=== PATIENT | female | born 1940 | race Caucasian/White ===

== ENCOUNTER 2017-07-29 17:16 | Observation (INO) ==
[2017-07-29] MEDS ORDERED: 0.9 % Sodium Chloride 500 ML IVC ONE (17:42)
[2017-07-29 17:59] LABS: Basophils % 0.5 %; Eosinophils # 0.1 K/mcL (0.0-0.6); Eosinophils % 1.8 %; Hematocrit 41.3 % (35.3-44.9); Hemoglobin 13.5 g/dL (11.5-15.4); Immature Granulocytes % 0.3 % (0-4); Lymphocytes % 25.9 %; Mean Corpuscular HGB Conc 32.7 g/dL (31.6-35.5); Mean Corpuscular Hemoglobin 29.6 pg (28.0-33.3); Mean Corpuscular Volume 90.6 fL (83.0-100.0); Mean Platelet Volume 9.1 fL (9.4-12.4); Monocytes # 0.5 K/mcL (0.0-1.3); Monocytes % 6.6 %; Platelet Count 239 K/mcL (140-400); Red Blood Count 4.56 M/mcL (3.82-4.97); Red Cell Distribution Width 13.4 % (11.5-14.5); Segmented Neutrophils % 64.9 %
[2017-07-29 18:04] LABS: INR 1.1; Prothrombin Time 11.5 Seconds (9.4-12.1)
[2017-07-29 18:06] LABS: Activated Partial Thrombo Time 31.5 Seconds (26.0-36.0)
[2017-07-29 18:08] LABS: Potassium 3.4 mEq/L (3.5-5.1)
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
[2017-07-29 18:40] LABS: Bilirubin,Urine Negative (Negative); Blood,Urine Negative (Negative); Clarity,Urine Clear (Clear); Color,Urine Yellow (Yellow); Glucose,Urine (UA) Normal (Normal); Ketones,Urine Negative (Negative); Leukocyte Esterase,Urine Moderate (Negative); Nitrite,Urine Negative (Negative); Protein,Urine Negative (Neg-Trace); Urobilinogen,Urine Normal (Normal)
[2017-07-29 18:41] LABS: Bacteria,Urine None Seen per hpf (None-Few); Hyaline Casts,Urine None Seen per lpf (None-Few); RBC,Urine 0-3 per hpf (0-3); Squamous Epithelial Cell,Urine Many per lpf (None-Few); WBC,Urine 15-30 per hpf (0-3)
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
[2017-07-29] MEDS ORDERED: Nitroglycerin 0.4 MG TAB.SUBL SL ONE (19:34)
[2017-07-29] MEDS ORDERED: Aspirin 81 MG TAB.CHEW PO ONE (20:01)
[2017-07-30] MEDS: Nitroglycerin 0.4 MG TAB.SUBL SL PRN ×2 (02:50→21:55)
[2017-07-30] MEDS ORDERED: Nitroglycerin 0.4 MG TAB.SUBL SL ONE (02:52)
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
[2017-07-30] MEDS ORDERED: Nitroglycerin 0.4 MG TAB.SUBL SL PRN (07:40)
[2017-07-30] MEDS ORDERED: Acetaminophen 325 MG TABLET PO PRN (07:43)
[2017-07-30] MEDS ORDERED: Naloxone 0.4 MG/ML INJ IVP PRN (07:43)
[2017-07-30] MEDS: hydroCHLOROthiazide 25 MG TABLET PO SCH (07:59)
[2017-07-30] MEDS: Pyridoxine (B-6) 50 MG TABLET PO SCH (08:00)
[2017-07-30] MEDS: Thiamine (B-1) 100 MG TABLET PO SCH (08:00)
[2017-07-30] MEDS: Isosorbide MONOnitrate (24 HR) 30 MG TAB.ER.24H PO SCH (08:00)
[2017-07-30] MEDS: Aspirin 81 MG TAB.CHEW PO SCH (08:00)
[2017-07-30] MEDS ORDERED: Metoprolol XL (24 HR) Succ 25 MG TAB.ER.24H PO SCH (09:00)
[2017-07-30] MEDS: Insulin DETEMIR 100 UNIT/ML X5UNITS SQ SCH ×2 (09:23→21:48)
[2017-07-30] MEDS ORDERED: hydrOXYzine pamoate 25 MG CAPSULE PO PRN (10:10)
[2017-07-30] MEDS ORDERED: Dextrose Gel 15 GM PO PRN ×2 (11:45)
[2017-07-30] MEDS ORDERED: D5% in Water 1,000 ML IVC PRN (11:45)
[2017-07-30] MEDS ORDERED: *HR* Dextrose 50 % in Water (Syg) 50 ML SYRINGE IVP PRN (11:45)
[2017-07-30] MEDS: Insulin LISPRO 300 UNITS/3 ML VIAL SQ SCH ×4 (11:58→21:48)
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
--- NOTE | 2017-07-30 16:39 | Electrocardiograph Report ---
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
[2017-07-30] MEDS: *HR* Heparin 5,000 UNIT/ML VIAL SQ SCH (16:51)
[2017-07-31] MEDS: *HR* Heparin 5,000 UNIT/ML VIAL SQ SCH ×2 (05:24→17:41)
[2017-07-31 05:41] LABS: BUN/Creatinine Ratio 23 (6-26); Blood Urea Nitrogen 21 mg/dL (8-23); Carbon Dioxide 31 mEq/L (23-29); Chloride 106 mEq/L (98-107); Glucose 82 mg/dL (70-105); Magnesium 1.9 mg/dL (1.6-2.6); Osmolality,Calculated 294 (280-300); Potassium 3.5 mEq/L (3.5-5.1); Sodium 141 mEq/L (136-145); eGFR For African Americans > 60 (> 60); eGFR For Non-African Americans 59 (> 60)
[2017-07-31 05:49] LABS: Thyroid Stimulating Hormone 5.699 mcIU/mL (0.340-5.600)
[2017-07-31 06:00] LABS: Basophils % 0.6 %; Eosinophils # 0.3 K/mcL (0.0-0.6); Eosinophils % 3.9 %; Hematocrit 37.2 % (35.3-44.9); Lymphocytes % 43.8 %; Mean Corpuscular Hemoglobin 29.1 pg (28.0-33.3); Mean Platelet Volume 9.2 fL (9.4-12.4); Monocytes # 0.4 K/mcL (0.0-1.3); Monocytes % 6.5 %; Platelet Count 220 K/mcL (140-400); Red Blood Count 4.09 M/mcL (3.82-4.97); Red Cell Distribution Width 13.6 % (11.5-14.5); Segmented Neutrophils % 45.2 %
[2017-07-31 06:23] LABS: Hemoglobin 11.9 g/dL (11.5-15.4)
[2017-07-31] MEDS: Insulin LISPRO 300 UNITS/3 ML VIAL SQ SCH ×4 (07:52→21:21)
[2017-07-31] MEDS: hydroCHLOROthiazide 25 MG TABLET PO SCH (08:45)
[2017-07-31] MEDS: Pyridoxine (B-6) 50 MG TABLET PO SCH (08:46)
[2017-07-31] MEDS: Isosorbide MONOnitrate (24 HR) 30 MG TAB.ER.24H PO SCH (08:46)
[2017-07-31] MEDS: Thiamine (B-1) 100 MG TABLET PO SCH (08:46)
[2017-07-31] MEDS: Aspirin 81 MG TAB.CHEW PO SCH (08:46)
[2017-07-31] MEDS: Insulin DETEMIR 100 UNIT/ML X5UNITS SQ SCH ×2 (08:47→21:20)
--- NOTE | 2017-07-31 11:25 | Event Note ---
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 Discussed with Dr. Vijay Curry as well. Limited echo EF preserved. Discussed with pt regarding PPM insertion--R/B/ A. Pt agrees. PPM today.
[2017-07-31] MEDS ORDERED: CeFAZolin Syr 2,000MG/20 ML 2,000 MG/20 ML SYRINGE IVPB ONE (11:26)
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
[2017-07-31] MEDS ORDERED: 0.9 % Sodium Chloride 500 ML ONE (14:54)
[2017-07-31] MEDS ORDERED: 0.9 % Sodium Chloride 1,000 ML ONE (14:56)
[2017-07-31] MEDS ORDERED: *HR* FentaNYL (PF) 100 MCG/2 ML VIAL ONE (15:19)
[2017-07-31] MEDS ORDERED: *HR* Midazolam HCl 2 MG/2 ML VIAL ONE ×2 (15:19→15:36)
--- NOTE | 2017-07-31 16:10 | Pre-Sedation Evaluation ---
Pre-sedation evaluation - Pre-sedation checklist Date of procedure: 07/31/17 Procedure: Pacemaker placement Recent Vitals: Last Vital Signs Temp 98.1 F 07/31/17 14:32 Pulse 69 07/31/17 14:32 Resp 15 07/31/17 14:32 BP 134/93 07/31/17 14:32 Pulse Ox 93 07/31/17 14:32 H&P (including ROS) documented in medical record: Yes Previous reaction to sedatives/anesthetics: No Dietary Status: No solid food in preceding 4 hrs and no liquid in preceding 2 hrs Dentition: No loose teeth or bridges Possible difficult airway: No ASA Classification *see protocol: CLASS II-Mild systemic disease Plan of Care: Pt appropriate candidate for procedure/moderate/conscious sedation , Risks/benefits of procedure/sedation discussed w/ patient/family
[2017-08-01] MEDS: CeFAZolin Premix DUPLEX 2,000 MG/50 ML BAG IVPB SCH ×2 (01:09→09:03)
[2017-08-01] MEDS ORDERED: *HR* OxyCODONE/APAP 5/325 TABLET PO PRN (01:14)
[2017-08-01 05:43] LABS: Basophils % 0.6 %; Eosinophils # 0.3 K/mcL (0.0-0.6); Eosinophils % 4.4 %; Hematocrit 35.9 % (35.3-44.9); Hemoglobin 11.4 g/dL (11.5-15.4); Immature Granulocytes % 0.2 % (0-4); Lymphocytes # 2.4 K/mcL (0.6-4.6); Lymphocytes % 36.2 %; Mean Corpuscular HGB Conc 31.8 g/dL (31.6-35.5); Mean Corpuscular Hemoglobin 28.8 pg (28.0-33.3); Mean Corpuscular Volume 90.7 fL (83.0-100.0); Mean Platelet Volume 9.3 fL (9.4-12.4); Monocytes # 0.5 K/mcL (0.0-1.3); Neutrophils # 3.4 K/mcL (1.6-8.9); Platelet Count 200 K/mcL (140-400); Red Blood Count 3.96 M/mcL (3.82-4.97); Red Cell Distribution Width 13.3 % (11.5-14.5); Segmented Neutrophils % 51.6 %
[2017-08-01 05:49] LABS: Hemoglobin A1C 6.2 %
[2017-08-01 06:00] LABS: BUN/Creatinine Ratio 18 (6-26); Blood Urea Nitrogen 17 mg/dL (8-23); Calcium 8.8 mg/dL (8.6-10.3); Carbon Dioxide 28 mEq/L (23-29); Chloride 106 mEq/L (98-107); Glucose 97 mg/dL (70-105); Osmolality,Calculated 291 (280-300); Potassium 3.5 mEq/L (3.5-5.1); Sodium 140 mEq/L (136-145); eGFR For African Americans > 60 (> 60); eGFR For Non-African Americans 56 (> 60)
[2017-08-01] MEDS: *HR* Heparin 5,000 UNIT/ML VIAL SQ SCH (06:25)
[2017-08-01] MEDS: Insulin LISPRO 300 UNITS/3 ML VIAL SQ SCH (07:52)
[2017-08-01] MEDS: hydroCHLOROthiazide 25 MG TABLET PO SCH (09:02)
[2017-08-01] MEDS: Pyridoxine (B-6) 50 MG TABLET PO SCH (09:02)
[2017-08-01] MEDS: Aspirin 81 MG TAB.CHEW PO SCH (09:02)
[2017-08-01] MEDS: Thiamine (B-1) 100 MG TABLET PO SCH (09:03)
[2017-08-01] MEDS: Isosorbide MONOnitrate (24 HR) 30 MG TAB.ER.24H PO SCH (09:03)
[2017-08-01] MEDS: Insulin DETEMIR 100 UNIT/ML X5UNITS SQ SCH (09:05)
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
[2017-08-01 10:58] VITALS: BP 143/82
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
[2017-08-02] MEDS ORDERED: Metoprolol XL (24 HR) Succ 25 MG TAB.ER.24H PO SCH (09:00)
== END 2017-08-01 16:05 | disposition home or self-care (01) ==
LOC: 3BNU 17:16 → EMEROO 17:16 → 3BNU 22:20
PROVIDERS: ADMIT Student in an Organized Health Care Education/Training Program; ATTEND Registered Nurse

== ENCOUNTER 2020-05-07 17:28 | Observation (INO) ==
[2020-05-07 19:28] LABS: Bacteria,Urine Few per hpf (None-Few); Bilirubin,Urine Negative (Negative); Blood,Urine Negative (Negative); Clarity,Urine Clear (Clear); Color,Urine Light-Yellow (Yellow); Glucose,Urine (UA) Normal (Normal); Ketones,Urine Negative (Negative); Leukocyte Esterase,Urine Large (Negative); Mucus,Urine Few per lpf (None-Few); Nitrite,Urine Negative (Negative); Protein,Urine Negative (Neg-Trace); RBC,Urine 0-3 per hpf (0-3); Specific Gravity,Urine 1.007 (1.010-1.025); Squamous Epithelial Cell,Urine Few per hpf (None-Few); Urobilinogen,Urine Normal (Normal); WBC,Urine 30-50 per hpf (0-3)
[2020-05-07 19:31] LABS: Basophils # 0.1 K/mcL (0.0-0.2); Basophils % 0.5 %; Eosinophils # 0.2 K/mcL (0.0-0.6); Eosinophils % 1.5 %; Hematocrit 41.8 % (35.3-44.9); Immature Granulocytes % 0.4 % (0-4); Lymphocytes # 1.4 K/mcL (0.6-4.6); Lymphocytes % 12.9 %; Mean Corpuscular HGB Conc 31.1 g/dL (31.6-35.5); Mean Corpuscular Hemoglobin 28.5 pg (28.0-33.3); Mean Corpuscular Volume 91.7 fL (83.0-100.0); Mean Platelet Volume 9.1 fL (9.4-12.4); Monocytes # 0.5 K/mcL (0.0-1.3); Monocytes % 4.4 %; Neutrophils # 8.5 K/mcL (1.6-8.9); Platelet Count 191 K/mcL (140-400); Red Blood Count 4.56 M/mcL (3.82-4.97); Red Cell Distribution Width 13.8 % (11.5-14.5); Segmented Neutrophils % 80.3 %; White Blood Count 10.6 K/mcL (4.3-11.1)
[2020-05-07 19:34] LABS: Prothrombin Time 11.6 Seconds (9.4-12.1)
[2020-05-07 19:37] LABS: Activated Partial Thrombo Time 38.8 Seconds (26.0-36.0)
[2020-05-07 19:50] LABS: Alanine Aminotransferase 19 Units/L (7-52); Albumin 4.4 g/dL (3.5-5.7); Albumin/Globulin Ratio 1.8 (1.1-2.2); Alkaline Phosphatase 107 Units/L (34-104); Aspartate Amino Transferase 22 Units/L (13-39); BUN/Creatinine Ratio 16 (6-26); Bilirubin,Total 0.5 mg/dL (0.3-1.0); Blood Urea Nitrogen 14 mg/dL (8-23); Calcium 9.7 mg/dL (8.6-10.3); Carbon Dioxide 28 mEq/L (23-29); Chloride 105 mEq/L (98-107); Globulin 2.5 g/dL (2.4-3.5); Glucose 48 mg/dL (70-105); Osmolality,Calculated 288 (280-300); Potassium 3.8 mEq/L (3.5-5.1); Sodium 140 mEq/L (136-145); Total Protein 6.9 g/dL (6.4-8.9); Troponin I < 0.03 ng/mL (< 0.04); eGFR For African Americans > 60 (> 60); eGFR For Non-African Americans > 60 (> 60)
[2020-05-07] MEDS ORDERED: Perflutren Lipid Microsphere 1.3 ML in 0.9 % Sodium Chloride 8.7 ML IVP PRN (23:29)
[2020-05-07] MEDS ORDERED: *HR* Dextrose 50 % in Water (Vial) 50 ML VIAL IVP PRN (23:33)
[2020-05-07] MEDS ORDERED: Dextrose Gel 15 GM/37.5 ML TUBE PO PRN ×2 (23:33)
[2020-05-08] MEDS ORDERED: Naloxone 0.4 MG/ML INJ IVP PRN (00:25)
[2020-05-08] MEDS ORDERED: Ondansetron 4 MG/2 ML VIAL IVP PRN (00:25)
[2020-05-08] MEDS ORDERED: D5% in Water 1,000 ML IVC PRN (00:29)
[2020-05-08] MEDS: Isosorbide MONOnitrate (24 HR) 30 MG TAB.ER.24H PO SCH ×2 (00:40→11:48)
[2020-05-08] MEDS: Metoprolol XL (24 HR) Succ 25 MG TAB.ER.24H PO SCH ×2 (00:40→11:49)
[2020-05-08] MEDS: 0.9 % Sodium Chloride 1,000 ML IVC SCH ×2 (03:09→19:20)
[2020-05-08] MEDS: cefTRIAXone 1,000 MG in 0.9 % Sodium Chloride Mini Bag 100 ML IVPB SCH ×2 (03:10→23:54)
[2020-05-08 05:22] LABS: INR 1.1; Prothrombin Time 12.6 Seconds (9.4-12.1)
[2020-05-08 05:36] LABS: Hematocrit 35.7 % (35.3-44.9); Mean Corpuscular HGB Conc 31.7 g/dL (31.6-35.5); Mean Corpuscular Hemoglobin 29.3 pg (28.0-33.3); Mean Corpuscular Volume 92.5 fL (83.0-100.0); Mean Platelet Volume 9.5 fL (9.4-12.4); Platelet Count 162 K/mcL (140-400); Red Blood Count 3.86 M/mcL (3.82-4.97); White Blood Count 5.8 K/mcL (4.3-11.1)
[2020-05-08 05:39] LABS: Hemoglobin 11.3 g/dL (11.5-15.4)
[2020-05-08 05:43] LABS: BUN/Creatinine Ratio 16 (6-26); Blood Urea Nitrogen 13 mg/dL (8-23); Calcium 8.9 mg/dL (8.6-10.3); Carbon Dioxide 29 mEq/L (23-29); Chloride 108 mEq/L (98-107); Chol/HDL Ratio 3.3 (0-4.9); Cholesterol 132 mg/dL (< 200); Glucose 123 mg/dL (70-105); HDL Cholesterol 40 mg/dL (40-59); Osmolality,Calculated 297 (280-300); Phosphorous 3.7 mg/dL (2.7-4.5); Potassium 3.8 mEq/L (3.5-5.1); Sodium 143 mEq/L (136-145); Triglycerides 152 mg/dL (< 150); eGFR For African Americans > 60 (> 60); eGFR For Non-African Americans > 60 (> 60)
[2020-05-08 05:44] LABS: LDL Cholesterol,Calculated 62 mg/dL (< 100)
[2020-05-08 05:52] LABS: Thyroid Stimulating Hormone 6.594 mcIU/mL (0.340-5.600)
[2020-05-08] MEDS: Insulin DETEMIR 100 UNIT/ML X5UNITS SQ SCH ×2 (07:30→20:26)
[2020-05-08] MEDS: Insulin LISPRO 300 UNITS/3 ML VIAL SQ SCH ×3 (07:30→18:11)
[2020-05-08 10:00] LABS: Estimated Average Glucose 140 mg/dl
[2020-05-08] MEDS: BuPROPion SR (12 HR) 150 MG TABLET PO SCH ×2 (11:48→20:25)
[2020-05-08] MEDS: Aspirin 81 MG TAB.CHEW PO SCH (11:48)
[2020-05-08] MEDS: Letrozole 2.5 MG TABLET PO SCH (11:49)
[2020-05-08] MEDS: Gabapentin 400 MG CAPSULE PO SCH ×3 (11:49→20:25)
[2020-05-08] MEDS: Furosemide 20 MG TABLET PO SCH (18:16)
[2020-05-08] MEDS: Acetaminophen 325 MG TABLET PO PRN ×2 (18:21→23:53)
[2020-05-09] MEDS: Insulin LISPRO 300 UNITS/3 ML VIAL SQ SCH ×3 (07:30→18:05)
[2020-05-09] MEDS ORDERED: Ergocalciferol (VIT D2) 50,000 UNIT (1.25MG) CAP PO SCH (08:15)
[2020-05-09] MEDS: Insulin DETEMIR 100 UNIT/ML X5UNITS SQ SCH ×2 (09:00→20:52)
[2020-05-09] MEDS: Letrozole 2.5 MG TABLET PO SCH (10:28)
[2020-05-09] MEDS: Gabapentin 400 MG CAPSULE PO SCH ×3 (10:28→20:51)
[2020-05-09] MEDS: Metoprolol XL (24 HR) Succ 50 MG TAB.ER.24H PO SCH (10:28)
[2020-05-09] MEDS: Isosorbide MONOnitrate (24 HR) 30 MG TAB.ER.24H PO SCH (10:28)
[2020-05-09] MEDS: Aspirin 81 MG TAB.CHEW PO SCH (10:28)
[2020-05-09] MEDS: Furosemide 20 MG TABLET PO SCH (10:28)
[2020-05-09] MEDS: BuPROPion SR (12 HR) 150 MG TABLET PO SCH ×2 (10:28→20:50)
[2020-05-09 10:36] LABS: Hematocrit 41.2 % (35.3-44.9); Hemoglobin 12.7 g/dL (11.5-15.4); Mean Corpuscular HGB Conc 30.8 g/dL (31.6-35.5); Mean Corpuscular Hemoglobin 28.8 pg (28.0-33.3); Mean Corpuscular Volume 93.4 fL (83.0-100.0); Mean Platelet Volume 9.2 fL (9.4-12.4); Platelet Count 199 K/mcL (140-400); Red Blood Count 4.41 M/mcL (3.82-4.97); White Blood Count 6.9 K/mcL (4.3-11.1)
[2020-05-09 11:10] LABS: BUN/Creatinine Ratio 20 (6-26); Blood Urea Nitrogen 21 mg/dL (8-23); Calcium 9.4 mg/dL (8.6-10.3); Carbon Dioxide 27 mEq/L (23-29); Chloride 103 mEq/L (98-107); Glucose 233 mg/dL (70-105); Osmolality,Calculated 294 (280-300); Potassium 3.9 mEq/L (3.5-5.1); Sodium 137 mEq/L (136-145); eGFR For African Americans > 60 (> 60); eGFR For Non-African Americans 51 (> 60)
[2020-05-09] MEDS ORDERED: Isovue-370 500 ML BOTTLE IVP ONE (11:38)
[2020-05-09] MEDS ORDERED: Furosemide 20 MG TABLET PO PRN (12:54)
[2020-05-09] MEDS ORDERED: 0.9 % Sodium Chloride 1,000 ML IVC SCH (19:30)
[2020-05-10 03:43] LABS: BUN/Creatinine Ratio 24 (6-26); Blood Urea Nitrogen 24 mg/dL (8-23); Calcium 9.1 mg/dL (8.6-10.3); Carbon Dioxide 28 mEq/L (23-29); Chloride 106 mEq/L (98-107); Glucose 134 mg/dL (70-105); Osmolality,Calculated 294 (280-300); Potassium 3.6 mEq/L (3.5-5.1); Sodium 139 mEq/L (136-145); eGFR For African Americans > 60 (> 60); eGFR For Non-African Americans 54 (> 60)
[2020-05-10 06:53] VITALS: BP 152/64
[2020-05-10] MEDS: Insulin LISPRO 300 UNITS/3 ML VIAL SQ SCH (08:36)
[2020-05-10] MEDS: Metoprolol XL (24 HR) Succ 50 MG TAB.ER.24H PO SCH (08:52)
[2020-05-10] MEDS: BuPROPion SR (12 HR) 150 MG TABLET PO SCH (08:52)
[2020-05-10] MEDS: Aspirin 81 MG TAB.CHEW PO SCH (08:52)
[2020-05-10] MEDS: Letrozole 2.5 MG TABLET PO SCH (08:52)
[2020-05-10] MEDS: Isosorbide MONOnitrate (24 HR) 30 MG TAB.ER.24H PO SCH (08:52)
[2020-05-10] MEDS: Gabapentin 400 MG CAPSULE PO SCH (08:52)
[2020-05-10] MEDS: Insulin DETEMIR 100 UNIT/ML X5UNITS SQ SCH (08:52)
== END 2020-05-10 11:35 | disposition home or self-care (01) ==
LOC: EMEROOARM 17:28 → 3BNU 17:28 → SUATTDRO 20:58 → 3BNU 21:45
PROVIDERS: ADMIT Internal Medicine; ATTEND Nurse Practitioner Adult Health